=== PATIENT | male | born 1960 | race Caucasian/White ===

== ENCOUNTER 2017-04-01 11:34 | Emergency (ER) | payer OTHER ==
[~2017-04-01] VITALS: Ht 182.9 cm; Wt 73.4 kg
[2017-04-01 11:45] VITALS: TEMP 36.9; Ht 182.9 cm; Wt 73.4 kg
--- NOTE | 2017-04-01 12:41 | EMERGENCY ROOM VISIT NOTE ---
ED Visit Note First contact with patient: 12:04 CHIEF COMPLAINT: Head injury HISTORY OF PRESENT ILLNESS: This 56-year-old male patient presented to the emergency department approximately 4 hours after receiving a head injury when a heavy pot fell approximately 3-4 feet, striking him on the top of the head. The patient was at work when the accident occurred. He states he was using a spray her, and did not notice there was a steel pot above his head. He states he believes it got caught in the sprayer, and was knocked over, falling approximately 4 feet and striking him on the top of the right side of his head. The patient states the incident occurred at approximately 820 this morning. He states there is initially no bleeding, no loss of consciousness, nausea, vomiting, confusion, amnesia, or weakness. He states he does not have a headache. He did initially have some dizziness, however this has improved. He feels the dull headache for the right side of his head, worse around his right eye, however this has improved as well. The headache has been constant, but improving. The patient complains of no neck pain. The patient has taken nothing for the pain. The patient rates the pain as 4/10 and dull. The patient denies bowel or bladder dysfunction. The patient denies any other injuries. REVIEW OF SYSTEMS: A 10 system review of systems was performed with positives and pertinent negatives listed in the history of present illness. All other systems were reviewed and are negative. ALLERGIES: None MEDICATIONS: Motrin, Tylenol PMH: Hiatal hernia, joint pain SOCIAL HISTORY: The patient lives locally alone. He is employed by the [employer]. He denies drug, alcohol, tobacco use. PHYSICAL EXAM: Vital Signs: Reviewed Nurse's notes, vital signs stable. GENERAL : This is a 56-year-old white male, in no acute distress, well-developed, well- nourished. NEURO: The patient is alert, oriented to person place and time, and coherent. Normal mini mental status exam. Negative Romberg and pronator drift. Cerebellar function intact. HEAD: Normocephalic, atraumatic. EYES: Pupils are equal round and reactive to light and accommodation. EOMs are full and optic discs and fundi are normal. There is no swelling or discoloration of the tissue surrounding the eyes. EARS: External auditory canals clear without blood. NOSE: Patent without tenderness. No septal hematoma. FACE: No facial bone tenderness. NECK: Supple. There is no cervical spine tenderness. The patient does not have tenderness with movement of the neck. ED COURSE: I examined the patient. He presents today status post head injury , where a heavy cooking pot fell on his head. The injury occurred approximately 5 hours prior to arrival. The patient states his symptoms are improving, however he continues to experience a mild, diffuse headache and overall feel "slightly off". The patient's neurological examination is consistent with concussion, and there is little concern for intercranial hemorrhage or skull fracture. I did discuss risks versus benefits of imaging with a normal neurological examination. Based on the patient's history and examination, he does not qualify for evaluation utilizing the CHIP Prediction rule or [place] CT Head Rule regarding the need for CT Scan. Utilizing shared decision making, the patient declines CT scan at this time. He was given very strict return precautions and encouraged to follow-up outpatient with his worker 's compensation providers and/or the concussion clinic. I did offer the patient pain medication and he declines. I recommended the patient rest today and not return to work, however, he states he feels well enough to go to work and does not wish to go home alone at this time. Discharge instructions reviewed. The patient was discharged home in good condition ambulatory. I attest that I have personally reviewed the patient's current medication list. Patient was found to have normal blood pressure on screening and does not require follow-up. Etiologies such as migraine, tumor, headache, sinus thrombosis, temporal arteritis, sinusitis, CVA, ICH, SAH, infection, as well as others were entertained. DIAGNOSIS: Head injury Allergies Coded Allergies: No Known Allergies (Unverified , 11/05/12) Vital Signs Date Time Temp Pulse Resp B/P (MAP) Pulse Ox O2 Delivery O2 Flow Rate FiO2 04/01/17 12:45 88 20 155/76 98 04/01/17 11:48 18 98 04/01/17 11:45 36.9 75 18 166/98 99 Room Air Departure Information Impression Primary Impression: Closed head injury Dispostion Home / Self-Care Condition GOOD Referrals No Doctor, Assigned (PCP) Patient Instructions ED Head Injury Closed, My [facility] Additional Instructions You have been treated in the Emergency Department for a Closed Head Injury. As discussed, your neurological examination at this time was overly negative. I do not feel that CT scan is necessary based on the mechanism of injury and normal exam at this time. As discussed, if you experience worsening symptoms, return immediately to the emergency department for further evaluation and management. For pain control, you can use the following twww-[id number] medicines (if >12 yo): Ibuprofen(Motrin, Advil) may be used for fever or pain. Use 400mg every six hours as needed. Take with food. Avoid using more than 2400mg in a 24 hour period. Do not use 2400mg per day for more than three consecutive days without physician direction. Prolonged inappropriate use can lead to stomach upset or ulcers. (AND/OR) Acetaminophen(Tylenol) may be used for fever or pain. Use 500mg every six hours as needed. Avoid using more than 3000mg in a 24 hour period. You should relax in a quiet, dark place for the rest of the day. Avoid any possible triggers including: cigarette smoke, caffeine, nicotine, chocolate, wine, beer, loud noises or music, or bright lights. You should schedule a follow-up appointment in 2-3 days with your Primary Care Provider or established Neurologist for further evaluation and treatment of your Headache. You should follow-up with the concussion clinic. They are located at [address] [place] [address], [address]. You may call them to schedule an appointment at [phone]. There are open Wednesday to Wednesday from 8:30 AM to 5:00 PM. Return to the Emergency Department if your current symptoms worsen despite treatment course outlined above, or if you develop any of the following symptoms : intractable pain despite aforementioned treatment course, visual disturbances , loss of vision, unilateral weakness or facial drooping, slurring of speech, loss of coordination, or loss of consciousness. Problem Qualifiers Primary Impression: Closed head injury Encounter type: initial encounter Qualified Codes: S09.90XA - Unspecified injury of head, initial encounter
[2017-04-01 12:45] VITALS: BP 155/76; PULSE 88; O2SAT 98
== END 2017-04-01 12:45 | disposition home or self-care (01) ==
LOC: C.EDB 11:35 → C.EDD 12:45
DX: S09.90XA Unspecified injury of head, initial encounter (principal); W20.8XXA Other cause of strike by thrown, projected or falling object, initial encounter; Y99.0 Civilian activity done for income or pay; Y92.89 Other specified places as the place of occurrence of the external cause; Y93.89 Activity, other specified

== ENCOUNTER 2017-04-07 07:51 | Emergency (ER) | payer OTHER ==
[~2017-04-07] VITALS: Ht 182.9 cm; Wt 74.6 kg
[2017-04-07 07:58] VITALS: TEMP 36.8; Ht 182.9 cm; Wt 74.6 kg
[2017-04-07] MEDS ORDERED: ACET-1311 PO (08:10)
[2017-04-07] MEDS ORDERED: IBUP-1050 PO (08:10)
[2017-04-07] MEDS ORDERED: RANI150T3 PO (08:10)
[2017-04-07] MEDS ORDERED: RANITIDINE HCL 150 MG TAB PO ONE (08:15)
[2017-04-07] MEDS ORDERED: ONDANSETRON 4MG OD TAB PO ONE (08:15)
--- NOTE | 2017-04-07 08:42 | EMERGENCY ROOM VISIT NOTE ---
History Report prepared by Gurpreet: Garfield Flowers Under the Supervision of: Dr. Hilario Dai D.O. First contact with patient: 07:57 Chief Complaint: HEADACHE Stated Complaint: HEADACHES,JAW PAIN, EYE PAIN History of Present Illness The patient is a 56 year old male who presents to the Emergency Room with complaints of worsening pain in his eyes that he has been experiencing of the past couple of days. The patient states that he came to the ED on , 6 days ago after having an "industrial cooking pot" fall onto his head from an elevated rack. The patient estimates the pot weighs 50-60 pounds. He is still feeling a "light" headache on the right side, as well as pain in his right jaw and right neck. 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 A total of 10 systems reviewed and were otherwise negative. Past Medical & Surgical Surgical Problems: (1) H/O knee surgery Family History Kidney disease Kidney stones Social History Smoking Status: Never Smoker Alcohol Use: occasionally Occupation Status: employed Current/Historical Medications Scheduled Acetaminophen (Tylenol), 325 MG PO DIRECTED Ibuprofen (Advil), 400-600 MG PO Q6H Ranitidine Hcl (Zantac), 150 MG PO DAILY Allergies Coded Allergies: No Known Allergies (Unverified , 04/07/17) Physical Exam Vital Signs Date Time Temp Pulse Resp B/P (MAP) Pulse Ox O2 Delivery O2 Flow Rate FiO2 04/07/17 10:00 63 18 151/86 97 04/07/17 07:58 36.8 74 18 183/94 97 Room Air Physical Exam GENERAL: Patient is awake, alert, and in no acute distress. Patient is resting comfortably and showing no signs of anxiety HEAD: There is swelling and tenderness over the right parietal scalp. EYES: The conjunctivae are clear. The pupils are round and reactive. EARS, NOSE, MOUTH AND THROAT: The nose is without any evidence of any deformity. Mucous membranes are moist tongue is midline. TMs clear bilaterally. NECK: The neck is nontender and supple. RESPIRATORY: Normal respiratory effort is noted there is no evidence of wheezing rhonchi or rales CARDIOVASCULAR: Regular rate and rhythm noted there no murmurs rubs or gallops normal S1 normal S2 GASTROINTESTINAL: The abdomen is soft. Bowel sounds are present in all quadrants. Abdomen is nontender PELVIS: The Pelvis is stable. No tenderness to palpation is noted. BACK: No midline tenderness or or step-off noted range of motion in flexion extension as well as rotation no signs of muscle spasm noted MUSCULOSKELETAL/EXTREMITIES: There is no evidence of gross deformity full range of motion is noted in the hips and shoulders SKIN: There is no obvious evidence of any rash. There are no petechiae, pallor or cyanosis noted. NEUROLOGIC: Patient is awake alert and oriented x3 strength is symmetric patellar reflexes are 2+ bilaterally Medical Decision & Procedures ER Provider Diagnostic Interpretation: Radiology results as stated below per my review and radiologist interpretation: CERVICAL SPINE W/O CT DOSE: 498.47 mGycm HISTORY: Trauma injury TECHNIQUE: Multiaxial CT images of the cervical spine were performed and reformatted in the sagittal and coronal plane without the use of contrast. A dose lowering technique was utilized adhering to the principles of ALARA. COMPARISON: None. FINDINGS: No fractures. No subluxation. Prevertebral soft tissues and the C1-C2 interval are intact. No pneumothorax. Slight concave deformities of the bulk of the vertebral bodies felt to be degenerative and/or related to old trauma. No acute process is appreciated. Degenerative changes C1-C2 complex. Prevertebral soft tissues are unremarkable. IMPRESSION: Degenerative change. No acute process. The above report was generated using voice recognition software. It may contain grammatical, syntax or spelling errors. Electronically signed by: Adelso Taylor M.D. 04/07/2017 9:14 AM Dictated Date/Time: 04/07/2017 9:10 AM HEAD WITHOUT CONTRAST (CT) CLINICAL HISTORY: 56 years-old Male with injury. Acute head injury with right high and right jaw pain TECHNIQUE: Multiple axial CT images of the head were obtained without contrast. A dose lowering technique was utilized adhering to the principles of ALARA. CT DOSE: 690.05 mGycm COMPARISON: CT maxillofacial and cervical spine CT of same day. FINDINGS: No acute intracranial hemorrhage, midline shift, intracranial mass, hydrocephalus, territorial ischemia or abnormal extra-axial collection. The calvarium is intact. The mastoid air cells, and middle ear cavities are clear. Minimal mucosal thickening of the ethmoid air cells. IMPRESSION: No acute intracranial abnormality. The above report was generated using voice recognition software. It may contain grammatical, syntax or spelling errors. Electronically signed by: To Gr M.D. 04/07/2017 8:47 AM Dictated Date/Time: 04/07/2017 8:44 AM FACIAL BONES-MXILLOFAC WITHOUT CT DOSE: 551.90 mGycm HISTORY: Trauma injury TECHNIQUE: Multiaxial CT images of the maxillofacial region were performed and reformatted in the coronal plane without the use of contrast. A dose lowering technique was utilized adhering to the principles of ALARA. COMPARISON: None. FINDINGS: The visualized cervical spine, skull base, pterygoid plates, nasal bones, lamina papyracea, orbital floors, mandible, and zygomatic arches are intact. No fractures. The orbits are unremarkable. Prior operative repair of the left mandible. Several caries are present. Small polyp right maxillary sinus. IMPRESSION: No fractures within the maxillofacial region. Chronic and postoperative change. The above report was generated using voice recognition software. It may contain grammatical, syntax or spelling errors. Electronically signed by: Adelso Taylor M.D. 04/07/2017 8:48 AM Dictated Date/Time: 04/07/2017 8:45 AM Medications Administered Medications (Trade) Dose Ordered Sig/Gena Route Start Time Stop Time Status Last Admin Dose Admin Ondansetron HCl (Zofran Odt) 4 mg ONE ONCE PO 04/07/17 08:15 04/07/17 08:16 DC 04/07/17 08:19 4 MG Ranitidine HCl (zANTac TAB) 150 mg NOW ONCE PO 04/07/17 08:15 04/07/17 08:16 DC 04/07/17 08:18 150 MG ED Course 0759: The patient was evaluated in room B12B. A complete history and physical examination were performed. 0815: Ordered zANTac 150 mg PO, Zofran 4 mg PO. 0951: Upon reevaluation, the patient is resting in bed. I discussed the results and treatment plan with him. He verbalized agreement of the treatment plan. The patient was discharged home. Medical Decision Differential diagnosis: Etiologies such as fracture, dislocation, intra-abdominal, pneumothorax, intrathoracic , intracranial, neurologic, as well as other traumatic pathologies were entertained. Nursing notes reviewed. The patient is a 56-year-old male who presented to the emergency department for an evaluation of head injury. The patient states he was struck on the head recently with a large metal cooking pot while he was at work. The patient initially was seen in the emergency department but had very few complaints. He did not have an initial CAT scan based on his clinical presentation. He presents today with a headache. His clinical presentation today does not reveal any meningismus or focal neurologic deficit however CT was obtained to ensure there is no intracranial injury or cervical spine injury. The patient did have some neck pain as well. I discussed the patient's radiographic studies with him. He was encouraged to rest and avoid any strenuous activity. He was also encouraged to call his family doctor to schedule a follow-up appointment but return to the emergency department immediately if symptoms change worsen or the need arises. Blood Pressure Screening Patient's blood pressure: Elevated blood pressure Impression Primary Impression: Facial contusion Additional Impression: Head injury Scribe Attestation The scribe's documentation has been prepared under my direction and personally reviewed by me in its entirety. I confirm that the note above accurately reflects all work, treatment, procedures, and medical decision making performed by me. Departure Information Dispostion Home / Self-Care Referrals No Doctor, Assigned (PCP) Forms HOME CARE DOCUMENTATION FORM, IMPORTANT VISIT INFORMATION Patient Instructions My [facility] [email or web address] Additional Instructions Continue to use Motrin and Tylenol as directed for pain. Follow-up with your family doctor soon as possible. Return to the emergency department if symptoms change worsen or the need arises. Problem Qualifiers Primary Impression: Facial contusion Encounter type: subsequent encounter Qualified Codes: S00.83XD - Contusion of other part of head, subsequent encounter Additional Impression: Head injury Encounter type: subsequent encounter Qualified Codes: S09.90XD - Unspecified injury of head, subsequent encounter
--- NOTE | 2017-04-07 08:48 | DIAGNOSTIC IMAGING REPORT ---
HEAD WITHOUT CONTRAST (CT) CLINICAL HISTORY: 56 years-old Male with injury. Acute head injury with right high and right jaw pain TECHNIQUE: Multiple axial CT images of the head were obtained without contrast. A dose lowering technique was utilized adhering to the principles of ALARA. CT DOSE: 690.05 mGycm COMPARISON: CT maxillofacial and cervical spine CT of same day. FINDINGS: No acute intracranial hemorrhage, midline shift, intracranial mass, hydrocephalus, territorial ischemia or abnormal extra-axial collection. The calvarium is intact. The mastoid air cells, and middle ear cavities are clear. Minimal mucosal thickening of the ethmoid air cells. IMPRESSION: No acute intracranial abnormality. The above report was generated using voice recognition software. It may contain grammatical, syntax or spelling errors. Electronically signed by: To Gr M.D. 04/07/2017 8:47 AM Dictated Date/Time: 04/07/2017 8:44 AM
--- NOTE | 2017-04-07 08:49 | DIAGNOSTIC IMAGING REPORT ---
FACIAL BONES-MXILLOFAC WITHOUT CT DOSE: 551.90 mGycm HISTORY: Trauma injury TECHNIQUE: Multiaxial CT images of the maxillofacial region were performed and reformatted in the coronal plane without the use of contrast. A dose lowering technique was utilized adhering to the principles of ALARA. COMPARISON: None. FINDINGS: The visualized cervical spine, skull base, pterygoid plates, nasal bones, lamina papyracea, orbital floors, mandible, and zygomatic arches are intact. No fractures. The orbits are unremarkable. Prior operative repair of the left mandible. Several caries are present. Small polyp right maxillary sinus. IMPRESSION: No fractures within the maxillofacial region. Chronic and postoperative change. The above report was generated using voice recognition software. It may contain grammatical, syntax or spelling errors. Electronically signed by: Adelso Taylor M.D. 04/07/2017 8:48 AM Dictated Date/Time: 04/07/2017 8:45 AM
--- NOTE | 2017-04-07 09:15 | DIAGNOSTIC IMAGING REPORT ---
CERVICAL SPINE W/O CT DOSE: 498.47 mGycm HISTORY: Trauma injury TECHNIQUE: Multiaxial CT images of the cervical spine were performed and reformatted in the sagittal and coronal plane without the use of contrast. A dose lowering technique was utilized adhering to the principles of ALARA. COMPARISON: None. FINDINGS: No fractures. No subluxation. Prevertebral soft tissues and the C1-C2 interval are intact. No pneumothorax. Slight concave deformities of the bulk of the vertebral bodies felt to be degenerative and/or related to old trauma. No acute process is appreciated. Degenerative changes C1-C2 complex. Prevertebral soft tissues are unremarkable. IMPRESSION: Degenerative change. No acute process. The above report was generated using voice recognition software. It may contain grammatical, syntax or spelling errors. Electronically signed by: Adelso Taylor M.D. 04/07/2017 9:14 AM Dictated Date/Time: 04/07/2017 9:10 AM
[2017-04-07 10:00] VITALS: BP 151/86; PULSE 63; O2SAT 97
== END 2017-04-07 10:00 | disposition home or self-care (01) ==
LOC: C.EDB 07:55
DX: S00.83XD Contusion of other part of head, subsequent encounter (principal); S09.90XD Unspecified injury of head, subsequent encounter; W20.8XXD Other cause of strike by thrown, projected or falling object, subsequent encounter; R03.0 Elevated blood-pressure reading, without diagnosis of hypertension; Z84.1 Family history of disorders of kidney and ureter